=== PATIENT | male | born 1950 | race Caucasian/White ===

== ENCOUNTER → 2018-05-06 | Outpatient (CLI) | payer OTHER, BC | LOC: FIMAGING 14:30 | PROVIDERS: ATTEND Family Medicine | DX: M25.512 Pain in left shoulder (principal); M75.52 Bursitis of left shoulder; M75.22 Bicipital tendinitis, left shoulder; R93.89 Abnormal findings on diagnostic imaging of other specified body structures ==

== ENCOUNTER → 2018-08-11 | Outpatient (CLI) | payer OTHER, BC | LOC: FIMAGING 18:50 | PROVIDERS: ATTEND Family Medicine | DX: M50.30 Other cervical disc degeneration, unspecified cervical region (principal); M41.83 Other forms of scoliosis, cervicothoracic region; M99.71 Connective tissue and disc stenosis of intervertebral foramina of cervical region ==